=== PATIENT | female | born 1980 | race Caucasian/White ===

== ENCOUNTER 2024-10-13 12:41 | Outpatient (CLI) | payer BC, SELFPAY ==
--- NOTE | ~2024-10-13 | MM_ITS ---
EXAMINATION: MM screening megan BI w ora HISTORY: Screening TECHNIQUE: Craniocaudal and mediolateral oblique 3-D tomosynthesis images were obtained and synthetic 2-D images were generated. CAD analysis was submitted and interpreted. COMPARISON: No prior mammogram is available for comparison at this institution. If prior imaging does become available, comparison will be performed. BREAST PARENCHYMAL COMPOSITION: There are scattered areas of fibroglandular density. FINDINGS: Asymmetry within the upper outer left breast for which spot compression, by a focused ultra sound is recommended. Otherwise unremarkable parenchymal pattern without suspicious microcalcifications or architectural di stortion. IMPRESSION: Asymmetry within the upper outer left breast for which spot compression, by a focused ultrasound is r ecommended. BI-RADS Category 0: Incomplete: Needs additional imaging evaluation. Reviewed, dictated and finalized at location A. IMPRESSION: Asymmetry within the upper outer left breast for which spot compression, by a f ocused ultrasound is recommended. BI-RADS Category 0: Incomplete: Needs additional imaging evaluation.
== END 2024-10-13 12:42 | disposition home or self-care (01) ==
LOC: MICIMG 12:41
PROVIDERS: PCP Family Medicine; Visit Provider Obstetrics & Gynecology Gynecology
DX: Z12.31 Encounter for screening mammogram for malignant neoplasm of breast (principal); R92.8 Other abnormal and inconclusive findings on diagnostic imaging of breast
CPT/HCPCS: 77063; 77067